=== PATIENT | male | born 1995 | race Caucasian/White ===

== ENCOUNTER 2017-04-08 21:35 | Emergency (ER) | payer OTHER ==
[~2017-04-08] VITALS: Ht 167.6 cm; Wt 74.0 kg
[2017-04-08 21:39] VITALS: BP 133/78
[2017-04-08 22:55] VITALS: BP 124/71
== END 2017-04-08 22:55 | disposition home or self-care (01) ==
LOC: MED 21:35
DX: H66.91 Otitis media, unspecified, right ear (principal); J02.9 Acute pharyngitis, unspecified; Z88.1 Allergy status to other antibiotic agents
CPT/HCPCS: 99283